=== PATIENT | female | born 2000 | race Caucasian/White ===

== ENCOUNTER 2022-09-01 06:14 | Emergency (ER) | payer SELFPAY ==
[2022-09-01] MEDS ORDERED: NALOXONE HCL 2 MG/2 ML VIAL ONE (06:28)
[2022-09-01] MEDS ORDERED: ONDANSETRON 4 MG/2 ML VIAL ONE (06:28)
[2022-09-01] MEDS ORDERED: NA CHLORIDE 0.9% 1,000 ML ONE (06:28)
[2022-09-01] MEDS ORDERED: ACETAMINOPHEN 500 MG TAB ONE ×2 (06:28→07:21)
[2022-09-01 06:47] LABS: Absolute Lymphocytes (CBC) 2.4 K/uL (0.7-4.9); Hematocrit 32.7 % (36.0-45.0); Lymphocytes % 15.4 % (15.3-44.8); MPV 7.8 fL (7.6-11.3); RBC Red Blood Cell Count 3.37 M/uL (3.86-4.86)
[2022-09-01 07:17] LABS: ALT/SGPT 15 U/L (13-56); AST/SGOT 14 U/L (15-37); Albumin 3.5 g/dL (3.4-5.0); Alkaline Phosphatase 75 U/L (45-117); BUN Blood Urea Nitrogen 6 mg/dL (7-18); Bicarbonate 23 mEq/L (21-32); Bilirubin Direct 0.1 mg/dL (0-0.2); Bilirubin Indirect, Calculated 0.1 mg/dL (0.2-0.8); Bilirubin Total 0.2 mg/dL (0.2-1.0); Glomerular Filtration Rate 111 ml/min (=/>90); Glucose Level 106 mg/dL (74-106); Potassium 3.7 mEq/L (3.5-5.1); Protein, Total 6.9 g/dL (6.4-8.2); Sodium Level 136 mEq/L (136-145)
[2022-09-01 07:31] LABS: Specific Gravity 1.009 (1.005-1.030); Urine Bilirubin NEGATIVE (Negative); Urine Blood Negative (Negative); Urine Clarity Clear (Clear); Urine Color Colorless (Yellow); Urine Glucose 2+ (Negative); Urine Protein NEGATIVE (Negative); Urine Urobilinogen Normal (Normal); Urine pH 6.5 (5.0-7.0)
[2022-09-01 07:54] LABS: Barbiturates NEGATIVE (NEGATIVE); Benzodiazepines NEGATIVE (NEGATIVE); Cocaine POSITIVE (NEGATIVE); METHAMPHETAM NEGATIVE (NEGATIVE); Methadone NEGATIVE (NEGATIVE); Opiates NEGATIVE (NEGATIVE); Phencyclidine NEGATIVE (NEGATIVE); THC Cannibis POSITIVE (NEGATIVE)
[2022-09-01] MEDS ORDERED: NALOXONE 2 MG in NA CHLORIDE 0.9% 500 ML IV ONE (08:00)
--- NOTE | 2022-09-01 08:39 | ER ---
Nurse's Notes [facility] Name: Teresa Stafford Age: 22 yrs Sex: Female : 2000 Arrival Date: 09/01/2022 Time: 06:14 Bed 17 Private MD: Diagnosis: Acute respiratory failure-drug induced;Adverse effect of other drugs, medicaments and biological substances-PECOCET/FENTANYL;Cocaine abuse;Abuse of other non-psychoactive substances Presentation: 09/01 06:15 Chief complaint: EMS states: Pt was found unresponsive, cyonotic, and apneic. Was given jb4 2mg of Narcan IV and 4mg of Zofran IV via 22g to the RAC. Pt is now A\T\Ox4. 06:15 Coronavirus screen: At this time, the client does not indicate any symptoms associated jb4 with coronavirus-19. Ebola Screen: No symptoms or risks identified at this time. Initial Sepsis Screen: Does the patient meet any 2 criteria? No. Patient's initial sepsis screen is negative. Does the patient have a suspected source of infection? No. Patient's initial sepsis screen is negative. Risk Assessment: Do you want to hurt yourself or someone else? Patient reports no desire to harm self or others. Onset of symptoms was September 01, 2022. Transition of care: patient was not received from another setting of care. 06:15 Method Of Arrival: EMS: [facility] jb4 06:15 Acuity: PATTI 2 jb4 Historical: - Allergies: 06:44 No Known Allergies; jb4 - PMHx: 06:44 None; jb4 - PSHx: 06:44 None; jb4 - Immunization history:: Adult Immunizations up to date. - Family history:: not pertinent. - Social history:: Smoking status: Reported history of juuling and/or vaping. Patient uses street drugs, cocaine, Patient/guardian denies using alcohol. Screenin:57 [facility] ED Fall Risk Assessment (Adult) History of falling in the last 3 months, ld1 including since admission No falls in past 3 months (0 pts). Abuse screen: Denies threats or abuse. Denies injuries from another. Nutritional screening: No deficits noted. Tuberculosis screening: No symptoms or risk factors identified. Assessment: 06:15 General: Appears in no apparent distress. uncomfortable, Behavior is cooperative, jb4 anxious. Pain: Complains of pain in headache Pain does not radiate. Pain currently is 8 out of 10 on a pain scale. Neuro: Level of Consciousness is awake, alert, obeys commands, Oriented to person, place, time, situation. Cardiovascular: Patient's skin is warm and dry. Respiratory: Airway is patent Respiratory effort is even, unlabored, Respiratory pattern is regular, symmetrical. GI: Reports nausea. : No signs and/or symptoms were reported regarding the genitourinary system. EENT: No signs and/or symptoms were reported regarding the EENT system. Derm: Skin is intact, Skin is clammy, Skin is pale, Skin temperature is warm. Musculoskeletal: Circulation, motion, and sensation intact. Range of motion: intact in all extremities. 07:24 Reassessment: Patient appears in no apparent distress at this time. No changes from ld1 previously documented assessment. Patient and/or family updated on plan of care and expected duration. Pain level reassessed. Patient is alert, oriented x 3, equal unlabored respirations, skin warm/dry/pink. Patient denies pain at this time. 08:00 Reassessment: No changes from previously documented assessment. Patient denies pain at ld1 this time. Patient states symptoms have improved. 09:15 Reassessment: Patient appears in no apparent distress at this time. Patient and/or ld1 family updated on plan of care and expected duration. Pain level reassessed. 10:40 Reassessment: Patient appears in no apparent distress at this time. Patient is alert, ld1 oriented x 3, equal unlabored respirations, skin warm/dry/pink. Patient denies pain at this time. Patient states feeling better. Vital Signs: 06:15 BP 120 / 88; Pulse 112; Resp 18; Temp 98.1(O); Pulse Ox 100% on R/A; jb4 07:24 BP 120 / 83; Pulse 94; Resp 18; Pulse Ox 100% on R/A; ld1 08:35 BP 114 / 73; Pulse 98; Resp 18; Pulse Ox 100% on R/A; ld1 09:45 BP 121 / 77; Pulse 99; Resp 18; Pulse Ox 100% on R/A; ld1 11:06 BP 116 / 71; Pulse 94; Resp 18; Pulse Ox 100% on R/A; ld1 ED Course: 06:15 Patient arrived in ED. rv1 06:15 Craig Rios MD is Attending Physician. sp4 06:41 Isiah Alejandre, RN is Primary Nurse. jb4 06:42 Acetaminophen Sent. jb4 06:42 Basic Metabolic Panel Sent. jb4 06:42 CBC with Diff Sent. jb4 06:42 ETOH Level Sent. jb4 06:42 Hepatic Function Sent. jb4 06:42 PT-INR Sent. jb4 06:42 Salicylate Sent. jb4 06:42 Ptt, Activated Sent. jb4 06:44 Triage completed. jb4 06:44 Arm band placed on right wrist. jb4 07:23 Urine Drug Screen Sent. jb4 07:23 Urinalysis w/ reflexes Sent. jb4 10:39 Attending Physician role handed off by Craig Rios MD jessica 10:39 Ian Fonseca MD is Attending Physician. jessica 10:43 Brooks Worthy MD is Referral Physician. jessica 10:57 No provider procedures requiring assistance completed. IV discontinued, intact, ld1 bleeding controlled, No redness/swelling at site. 10:57 Patient has correct armband on for positive identification. Placed in gown. Bed in low ld1 position. Call light in reach. Side rails up X2. traffic monitor specialist on. Pulse ox on. NIBP on. 10:57 talked with justin stack \T\ transfer center [address] 0839 \T\ 0919 kj 1 admin approval ,pt refused to be transferred. Administered Medications: 06:41 Drug: NS 0.9% IV 1000 ml Route: IV; Rate: 125 ml/hr; Site: right antecubital; jb4 06:42 Drug: Ondansetron IVP 4 mg Route: IVP; Site: right antecubital; jb4 06:42 Drug: Naloxone IVP 2 mg Route: IVP; Site: right antecubital; jb4 06:51 Not Given (Patient Refused): Acetaminophen PO 1000 mg PO once jb4 07:01 CANCELLED (Physician Discretion): NARcan IVP 10 mg IVP at 3 mg/hr once kl 08:28 Not Given (Duplicate Order): Narcan 6 mg IV at 3 mg/hr continuous sp4 08:35 Drug: NARcan IVP 2 mg Route: IVP; Rate: 100 ml/hr; Site: right antecubital; ld1 Medication: 10:58 VIS not applicable for this client. ld1 Outcome: 08:38 ER care complete, transfer ordered by . sp4 10:42 Discharge ordered by . jessica 10:58 Discharged to home ambulatory. ld1 10:58 Condition: stable 10:58 Discharge instructions given to patient, Instructed on discharge instructions, follow up and referral plans. Demonstrated understanding of instructions, follow-up care. 11:06 Patient left the ED. ld1 Signatures: Ian Fonseca MD MD cha Bryson, James RN RN jb4 Mariya Ricardo Lauren, RN RN ld1 Maryellen Obrien Sergey, MD MD sp4 Luana Armenta RN Corrections: (The following items were deleted from the chart) 07:34 07:23 Test, Urine+UC.LAB.BRZ drawn and sent. jb4 EDMS
--- NOTE | 2022-09-01 08:39 | EDPHYS ---
Physician Documentation [facility] Name: Teresa Stafford Age: 22 yrs Sex: Female : 2000 Arrival Date: 09/01/2022 Time: 06:14 Bed 17 Private MD: ED Physician Ian Fonseca HPI: 09/01 07:44 This 22 yrs old Female presents to ER via EMS with complaints of Drug Abuse. sp4 07:44 22-year-old female presents with EMS after she reportedly overdosed on Percocet. sp4 Patient reported she took blue-colored pill at home that she purchased from a dealer. Patient became unresponsive and was found by EMS apneic, given IV Narcan 2 mg. Patient woke up after Narcan and was brought here for additional evaluation.. Historical: - Allergies: 06:44 No Known Allergies; jb4 - PMHx: 06:44 None; jb4 - PSHx: 06:44 None; jb4 - Immunization history:: Adult Immunizations up to date. - Family history:: not pertinent. - Social history:: Smoking status: Reported history of juuling and/or vaping. Patient uses street drugs, cocaine, Patient/guardian denies using alcohol. ROS: 07:44 Constitutional: Negative for fever, chills, and weight loss, Eyes: Negative for injury, sp4 pain, redness, and discharge, ENT: Negative for injury, pain, and discharge, Neck: Negative for injury, pain, and swelling, Cardiovascular: Negative for chest pain, palpitations, and edema, Respiratory: Negative for shortness of breath, cough, wheezing, and pleuritic chest pain, Abdomen/GI: Negative for abdominal pain, nausea, vomiting, diarrhea, and constipation, Back: Negative for injury and pain, : Negative for injury, bleeding, discharge, and swelling, MS/Extremity: Negative for injury and deformity, Skin: Negative for injury, rash, and discoloration, Neuro: Negative for headache, weakness, numbness, tingling, and seizure, Psych: Negative for depression, anxiety, Allergy/Immunology: Negative for hives, rash, and allergies Endocrine: Negative for neck swelling, polydipsia, polyuria, polyphagia, and weight changes Hematologic/Lymphatic: Negative for swollen nodes, abnormal bleeding, and unusual bruising Exam: 07:44 Constitutional: This is a well developed, well nourished patient who is awake, alert, sp4 and in no acute distress. Head/Face: Normocephalic, atraumatic. Eyes: Pupils equal round and reactive to light, extra-ocular motions intact. Lids and lashes normal. Conjunctiva and sclera are not injected. Cornea within normal limits. Periorbital areas with no swelling, redness, or edema. ENT: Nares patent. No nasal discharge, no septal abnormalities noted. Tympanic membranes are normal and external auditory canals are clear. Oropharynx with no redness, swelling, or masses, exudates, or evidence of obstruction, uvula midline. Mucous membranes moist. Neck: Trachea midline, no thyromegaly or masses palpated, and no cervical lymphadenopathy. Supple, full range of motion without nuchal rigidity, or vertebral point tenderness. Chest/axilla: Normal chest wall appearance and motion. Nontender with no deformity. No lesions are appreciated. Cardiovascular: Regular rate and rhythm with a normal S1 and S2. No gallops, murmurs, or rubs. Normal PMI, no JVD. No pulse deficits. Respiratory: Lungs have equal breath sounds bilaterally, clear to auscultation and percussion. No rales, rhonchi or wheezes noted. No increased work of breathing, no retractions or nasal flaring. Abdomen/GI: Soft, non-tender, with normal bowel sounds. No distension or tympany. No guarding or rebound. No evidence of tenderness throughout. Back: No spinal tenderness. No costovertebral tenderness. Skin: Warm, dry with normal turgor. Normal color with no rashes, no lesions, and no evidence of cellulitis. MS/ Extremity: Pulses equal, no cyanosis. Neurovascular intact. Full, normal range of motion. Neuro: Awake and alert, GCS 15, oriented to person, place, time, and situation. Cranial nerves II-XII grossly intact. Motor strength 5/5 in all extremities. Sensory grossly intact. Psych: Awake, alert, with orientation to person, place and time. Behavior, mood, and affect are within normal limits 08:33 ECG was reviewed by the Attending Physician. Sinus tachycardia at a rate of 110, no ST sp4 elevation or depression, no ectopy. Vital Signs: 06:15 BP 120 / 88; Pulse 112; Resp 18; Temp 98.1(O); Pulse Ox 100% on R/A; jb4 07:24 BP 120 / 83; Pulse 94; Resp 18; Pulse Ox 100% on R/A; ld1 08:35 BP 114 / 73; Pulse 98; Resp 18; Pulse Ox 100% on R/A; ld1 09:45 BP 121 / 77; Pulse 99; Resp 18; Pulse Ox 100% on R/A; ld1 11:06 BP 116 / 71; Pulse 94; Resp 18; Pulse Ox 100% on R/A; ld1 MDM: 06:17 Patient medically screened. sp4 08:08 Differential Diagnosis altered mental status, sepsis. sp4 08:33 Data reviewed: vital signs, nurses notes, EMS record, lab test result(s), EKG. ED sp4 course: Patient most likely overdosed on fentanyl but she is also positive for cocaine.. 08:40 ED course: Patient was discussed with [facility] sales merchandiser at [facility] sp4 and excepted for transfer.. 09/01 06:16 Order name: Acetaminophen; Complete Time: 07:47 09/01 06:16 Order name: Basic Metabolic Panel; Complete Time: 07:47 09/01 06:16 Order name: CBC with Diff; Complete Time: 07:47 09/01 06:16 Order name: ETOH Level; Complete Time: 07:47 09/01 06:16 Order name: Hepatic Function; Complete Time: 07:47 09/01 06:16 Order name: PT-INR; Complete Time: 07:47 09/01 06:16 Order name: Ptt, Activated; Complete Time: 07:47 09/01 06:16 Order name: Salicylate; Complete Time: 07:47 4 09/01 06:16 Order name: Urinalysis w/ reflexes; Complete Time: 07:47 09/01 06:16 Order name: Urine Drug Screen; Complete Time: 08:06 4 09/01 06:16 Order name: Test, Serum; Complete Time: 07:47 4 09/01 08:08 Order name: SARS RAPID; Complete Time: 10:39 09/01 06:16 Order name: EKG; Complete Time: 06:17 09/01 06:16 Order name: EKG - Nurse/Tech; Complete Time: 06:48 sp4 09/01 06:16 Order name: IV Saline Lock; Complete Time: 06:41 sp4 09/01 06:16 Order name: Labs collected and sent; Complete Time: 06:42 sp4 09/01 06:16 Order name: Suicide Screening (Rogelio); Complete Time: 07:23 sp4 EC:33 Rate is 110 beats/min. Rhythm is regular, Sinus tachycardia. QRS [place] is Normal. [place] sp4 interval is normal. QRS interval is normal. QT interval is normal. T waves are Normal. Clinical impression: No evidence of ischemia. Interpreted by me. Administered Medications: 06:41 Drug: NS 0.9% IV 1000 ml Route: IV; Rate: 125 ml/hr; Site: right antecubital; jb4 06:42 Drug: Ondansetron IVP 4 mg Route: IVP; Site: right antecubital; jb4 06:42 Drug: Naloxone IVP 2 mg Route: IVP; Site: right antecubital; jb4 06:51 Not Given (Patient Refused): Acetaminophen PO 1000 mg PO once jb4 07:01 CANCELLED (Physician Discretion): NARcan IVP 10 mg IVP at 3 mg/hr once kl 08:28 Not Given (Duplicate Order): Narcan 6 mg IV at 3 mg/hr continuous sp4 08:35 Drug: NARcan IVP 2 mg Route: IVP; Rate: 100 ml/hr; Site: right antecubital; ld1 Disposition Summary: 09/01/22 10:42 Discharge Ordered Location: Home jessica Problem: new(09/01/22 10:42) jessica Symptoms: have improved(09/01/22 10:42) jessica Condition: Stable(09/01/22 10:42) jessica Diagnosis - Acute respiratory failure - drug induced jessica - Adverse effect of other drugs, medicaments and biological substances - jessica PECOCET/FENTANYL - Cocaine abuse jessica - Abuse of other non-psychoactive substances jessica Followup: jessica - With: Private Physician - When: 2 - 3 days - Reason: Recheck today's complaints, Continuance of care, Re-evaluation by your physician Followup: jessica - With: Brooks Worthy MD - When: 2 - 3 days - Reason: Recheck today's complaints, Re-evaluation by your physician Discharge Instructions: - Discharge Summary Sheet jessica - Finding Treatment for Addiction jessica - Substance Use Disorder jessica - Supporting Someone With an Addiction jessica - Substance Use Disorder and Mental Illness jessica - Illegal Drug Use Information, Adult jessica - Supporting Someone With Substance Use Disorder jessica Forms: - Medication Reconciliation Form jessica - Thank You Letter jessica - Antibiotic Education jessica - Prescription Opioid Use jessica Signatures: Dispatcher [employer] EDMS Luana Armenta RN Ian Arias MD MD cha Bryson, James, RN RN jb4 Aria Hickman RN RN ld1 Craig Rios MD MD sp4 Corrections: (The following items were deleted from the chart) 07:01 06:17 NARcan IVP 10 mg IVP at 3 mg/hr once ordered. sp4 kl 07:01 07:01 NARcan IVP 10 mg IVP at 3 mg/hr once ordered. kl kl 07:34 06:17 Test, Urine+UC.LAB.BRZ ordered. EDMS EDMS 10:39 08:38 Leather Seasoner sp4 jessica 10:39 08:38 Other Acute Care Facility sp4 jessica 10:39 08:38 Higher level of care sp4 jessica 10:39 08:38 Serious sp4 jessica 10:39 08:38 new sp4 jessica 10:39 08:38 have improved sp4 jessica 10:39 08:38 Acute opiate overdose , Cocaine abuse, sp4 jessica
[2022-09-01 10:05] LABS: SARS-CoV-2 Antigen Rapid Res Negative (Negative)
[2022-09-01 11:11] VITALS: TEMP 98.1; O2SAT 100
[2022-09-01 11:18] VITALS: BP 116/71
--- NOTE | 2022-09-02 14:23 | EKG ---
Test Date: 2022-09-01 Test Time: 06:43:38 News Anchor: REJI MEASUREMENT RESULTS: Intervals: Rate: 110 SD: 188 QRSD: 88 QT: 332 QTc: 449 [place]: P: 68 SD: 188 QRS: 91 T: 54 INTERPRETIVE STATEMENTS: Sinus tachycardia Otherwise normal ECG No previous ECG available for comparison Electronically Signed On 09-02-22 14:21:45 CDT by [facility]
== END 2022-09-01 11:06 | disposition home or self-care (01) ==
LOC: ER 06:14
DX: J96.00 Acute respiratory failure, unspecified whether with hypoxia or hypercapnia (principal); F14.10 Cocaine abuse, uncomplicated; T40.415A Adverse effect of fentanyl or fentanyl analogs, initial encounter; T40.2X5A Adverse effect of other opioids, initial encounter; F55.8 Abuse of other non-psychoactive substances
CPT/HCPCS: 36415; 80048; 80076; 80143; 80179; 80307; 81003; 82077; 84703; 85025; 85610; 85730; 87811; 93005; 96374; 96375; 99291; 99292; J2310; J2405; J7030; J7040